=== PATIENT | male | born 1975 | race American Indian/Alaskan Native ===

== ENCOUNTER 2017-07-01 21:01 | Emergency (ER) | payer BC ==
[2017-07-01 21:11] VITALS: BMI 27.8
[2017-07-01 21:14] VITALS: RESP 18; TEMP 97.8; O2SAT 100
[2017-07-01] MEDS ORDERED: Silver Nitrate Topical - Stick TOP ONE (21:39)
--- NOTE | 2017-07-01 21:42 | ED PDOC ---
Arrival/HPI <Arnel Nj - Last Filed: 07/01/17 21:49> - General Historian: Patient - History of Present Illness Time/Duration: Other (see hpi) Context: Home <William Metcalf - Last Filed: 07/02/17 19:09> - General Chief Complaint: ENT Problem Time Seen by Provider: 07/01/17 21:33 - History of Present Illness Narrative History of Present Illness (Text): 07/01/17 21:39 This 41 yo male who denies pmh, presents to this Emergency department complaining of intermittent right nosebleed x 5 days. Patient nose bleed has been intermittent. Patient stated he was seen at a local urgent care center x 2 days, where his nose was cauterized, and recommended to use Vaseline. Patient admits blowing his nose early today. (William Metcalf) Past Medical History - Past History Past History: No Previous - Infectious Disease Hx of Infectious Diseases: None - Tetanus Immunization Tetanus Immunization: Unknown - Psychiatric Hx Substance Use: No - Surgical History Other/Comment: deviated septum - Anesthesia Hx Anesthesia: Yes Hx Anesthesia Reactions: No Hx Malignant Hyperthermia: No - Suicidal Assessment Feels Threatened In Home Enviroment: No <William Metcalf - Last Filed: 07/02/17 19:09> Family/Social History - Physician Review Nursing Documentation Reviewed: Yes Family/Social History: Other (noncontributory) Smoking Status: Never Smoked Hx Alcohol Use: Yes Frequency of alcohol use: Socially Hx Substance Use: No Hx Substance Use Treatment: No <William Metcalf - Last Filed: 07/02/17 19:09> Allergies/Home Meds <Arnel Nj - Last Filed: 07/01/17 21:49> <William Metcalf - Last Filed: 07/02/17 19:09> Allergies/Adverse Reactions: Allergies No Known Allergies Allergy (Verified 12/31/15 22:34) Review of Systems - Review of Systems Constitutional: Normal. absent: Fatigue, Weight Change, Fevers, Night Sweats Eyes: Normal ENT: Epistaxis Respiratory: Normal Cardiovascular: Normal Gastrointestinal: Normal Genitourinary Male: Normal Musculoskeletal: Normal Skin: Normal Neurological: Normal Endocrine: Normal Hemo/Lymphatic: Normal Psychiatric: Normal <William Metcalf P - Last Filed: 07/02/17 19:09> Physical Exam Temperature: Afebrile Blood Pressure: Normal Pulse: Regular Respiratory Rate: Normal Appearance: Positive for: Well-Appearing, Non-Toxic, Comfortable Pain Distress: None Mental Status: Positive for: Alert and Oriented X 3 - Systems Exam Head: Present: Atraumatic, Normocephalic Pupils: Present: PERRL Extroacular Muscles: Present: EOMI Conjunctiva: Present: Normal Mouth: Present: Moist Mucous Membranes Pharnyx: Present: Normal. No: ERYTHEMA, EXUDATE, TONSILS ENLARGED Nose (External): Present: Atraumatic Nose (Internal): Present: No Active Bleeding, Epistaxis Neck: Present: Normal Range of Motion, Trachea Midline. No: Meningeal Signs, MIDLINE TENDERNESS, Paraspinal Tenderness, Lymphadenopathy Respiratory/Chest: Present: Clear to Auscultation, Good Air Exchange. No: Respiratory Distress, Accessory Muscle Use, Wheezes, Decreased Breath Sounds, Rales, Retracting, Rhonchi Cardiovascular: Present: Regular Rate and Rhythm, Normal S1, S2. No: Murmurs Upper Extremity: Present: Normal Inspection, Normal ROM Lower Extremity: Present: Normal Inspection, Normal ROM Neurological: Present: GCS=15, CN II-XII Intact, Speech Normal Skin: Present: Warm, Dry, Normal Color. No: Rashes Psychiatric: Present: Alert, Oriented x 3, Normal Insight, Normal Concentration <William Metcalf - Last Filed: 07/02/17 19:09> Vital Signs Temp Pulse Resp BP Pulse Ox 07/01/17 23:39 65 18 144/80 100 07/01/17 21:02 97.8 F 68 18 150/82 100 Medical Decision Making <Arnel Nj - Last Filed: 07/01/17 21:49> Re-evaluation Time: 23:14 Reassessment Condition: Re-examined, Improved <William Metcalf - Last Filed: 07/02/17 19:09> ED Course and Treatment: 07/01/17 23:14 Re-evaluation. Patient feels better. Discussed results and plan with patient who expresses understanding. All questions answered and there is agreement with the plan to discharge home with instructions. Patient stable for discharge. Return if symptoms persist or worsen. Procedure: Right nare abrasion was cauterized with silver nitrate. Patient tolerated procedure well. Patient stayed in the ED for observation for one hour. Epistaxis improved. (William Metcalf) - Medication Orders Current Medication Orders: Discontinued Medications Silver Nitrate (Silver Nitrate Topical Stick) 4 swa TOP ONCE ONE Stop: 07/01/17 21:40 Last Admin: 07/01/17 23:00 Dose: 4 swa Comments: adm by William Metcalf PA - PA / CERTIFIED COURT INTERPRETER / Resident Statement YENIFER has reviewed & agrees with the documentation as recorded. YENIFER has examined the patient and agrees with the treatment plan. <Arnel Nj - Last Filed: 07/01/17 21:49> Disposition/Present on Arrival <Arnel Nj - Last Filed: 07/01/17 21:49> - Present on Arrival Any Indicators Present on Arrival: No History of DVT/PE: No History of Uncontrolled Diabetes: No Urinary Catheter: No History of Decub. Ulcer: No History Surgical Site Infection Following: None - Disposition Have Diagnosis and Disposition been Completed?: Yes Disposition Time: 23:14 Patient Plan: Discharge <William Metcalf - Last Filed: 07/02/17 19:09> - Disposition Diagnosis: Epistaxis Disposition: HOME/ ROUTINE Condition: GOOD Discharge Instructions (ExitCare): Nosebleed (ED) Additional Instructions: Call private doctor for follow up visit in 1-2 days. have your doctor recheck blood pressure next week. Consider a low salt diet. Use humidifier and apply Vaseline on both nostrils. Do not blow your nose. Return to emergency if symptoms worsen. Referrals: Imelda Chen MD [Primary Care Provider] - Follow up with primary Shantanu Banda DO [Doctor Osteopathy] - Follow up with primary Forms: [employer] (E[place]ian)
[2017-07-01 23:39] VITALS: BP 144/80; PULSE 65
== END 2017-07-01 23:41 | disposition home or self-care (01) ==
LOC: ED 21:01
DX: R04.0 Epistaxis (principal)